=== PATIENT | male | born 1970 | race Caucasian/White ===

== ENCOUNTER 2020-08-21 16:23 | Emergency (ER) | payer MEDICAID, SELFPAY ==
[~2020-08-21] VITALS: Ht 195.6 cm; Wt 160.0 kg
--- NOTE | 2020-08-21 17:02 | NUR ---
PT STATES HE HAD SURGERY 10 WEEKS AGO TO REMOVE A LIGAMENT OFF OF AND ARTERY AND TENDONS. PT C/O SIMILAR ABDOMINAL PAIN FOR A FEW DAYS. PT AMBULATED TO RESTROOM WITH STEADY GAIT TO PROVIDE URINE SAMPLE. UA ORDERED PER PROTOCOL AND SENT TO LAB. PT CONNECTED TO MONITORING. CALL LIGHT IN REACH.
[2020-08-21 17:28] LABS: MICROSCOPIC AUTO
[2020-08-21] MEDS ORDERED: SODIUM CHLORIDE FLUSH 10ML SYR IVF ONE (17:30)
[2020-08-21] MEDS ORDERED: ONDANSETRON 2MG/ML, 2ML IVPush ONE (17:30)
[2020-08-21] MEDS ORDERED: ONDANSETRON 2MG/ML, 2ML ONE (17:48)
[2020-08-21] MEDS ORDERED: HYDROmorphone 1 MG/ML, 1ML INJ ONE ×2 (17:48→19:11)
[2020-08-21] MEDS: HYDROmorphone 2 MG/ML, 1ML IVPush PRN ×2 (17:57→19:13)
[2020-08-21 18:09] LABS: BASOPHILS % (AUTO) 1 % (0-1); EOSINOPHILS % (AUTO) 1 % (1-7); LYMPHOCYTES % (AUTO) 15 % (22-44); MEAN PLATELET VOLUME 8.1 fL (7.4-10.4); MONOCYTES % (AUTO) 10 % (2-9); NEUTROPHILS % (AUTO) 74 % (42-75); PLATELET COUNT 250 x10^3/uL (130-400); RED BLOOD COUNT 4.36 x10^6/uL (4.38-5.82); RED CELL DISTRIBUTION WIDTH 14.4 % (9.4-14.8)
[2020-08-21 18:11] LABS: MD NO
[2020-08-21 18:20] LABS: ALBUMIN 3.9 g/dL (3.4-5.0); ANION GAP 2 mmol/L (5-15); CHLORIDE 106 mmol/L (98-107)
[2020-08-21 18:27] LABS: ALANINE AMINOTRANSFERASE 52 U/L (12-78); ALKALINE PHOSPHATASE 99 U/L (45-117); BILIRUBIN,TOTAL 0.4 mg/dL (0.2-1.0); CREATININE 1.04 mg/dL (0.7-1.3); TROPONIN I < 0.015 ng/mL (0.000-0.045)
--- NOTE | 2020-08-21 18:39 | NUR ---
ALL RESULTS ARE BACK AT THIS TIME. CHART UP FOR RECHECK.
[2020-08-21] MEDS ORDERED: OMNIPAQUE 350 MG/ML, 100ML BOTTLE ONE (18:51)
--- NOTE | 2020-08-21 19:15 | NUR ---
PT C/O 05/10 PAIN. PAIN MEDS ADMIN PER NOV. PT GOING TO CT.
[2020-08-21 20:12] VITALS: BP 138/72
== END 2020-08-21 20:13 | disposition home or self-care (01) ==
LOC: ED 16:47
DX: R10.12 Left upper quadrant pain (principal); R07.89 Other chest pain; R94.31 Abnormal electrocardiogram [ECG] [EKG]; F17.200 Nicotine dependence, unspecified, uncomplicated
CPT/HCPCS: 36415; 74177; 80053; 81001; 83690; 84484; 85025; 93005; 96374; 96375; 96376; 99285; J1170; J2405; Q9967

== ENCOUNTER 2020-08-22 11:05 | Emergency (ER) | payer MEDICAID ==
[~2020-08-22] VITALS: Ht 193 cm; Wt 150.6 kg
--- NOTE | 2020-08-22 11:13 | NUR ---
PT AMBULATED TO ROOM WITH STEADY GAIT.
--- NOTE | 2020-08-22 11:15 | NUR ---
PT REFUSED TO GET INTO GOWN AND CONNECT TO MONITORING.
[2020-08-22] MEDS ORDERED: ONDANSETRON 2MG/ML, 2ML ONE (11:51)
[2020-08-22] MEDS ORDERED: HYDROmorphone 1 MG/ML, 1ML INJ ONE ×3 (11:51→14:27)
[2020-08-22] MEDS: HYDROmorphone 2 MG/ML, 1ML IVPush PRN ×2 (11:53→13:06)
[2020-08-22 11:55] LABS: BASOPHILS % (AUTO) 1 % (0-1); EOSINOPHILS % (AUTO) 2 % (1-7); LYMPHOCYTES % (AUTO) 20 % (22-44); MEAN CORPUSCULAR HEMOGLOBIN 32.4 pg (27.5-34.5); MEAN CORPUSCULAR HGB CONC 33.4 g/dL (33.2-36.2); MEAN PLATELET VOLUME 8.1 fL (7.4-10.4); MONOCYTES % (AUTO) 12 % (2-9); NEUTROPHILS % (AUTO) 66 % (42-75); PLATELET COUNT 251 x10^3/uL (130-400); RED BLOOD COUNT 4.14 x10^6/uL (4.38-5.82); RED CELL DISTRIBUTION WIDTH 14.3 % (9.4-14.8)
--- NOTE | 2020-08-22 11:56 | NUR ---
PT IN GOWN AND CONNECTED TO MONITORING. PIV PLACED, LABS DRAWN AND SENT TO LAB WITH STICKERS. MEDS ADMIN PER NOV.
[2020-08-22 11:59] LABS: MD NO
[2020-08-22] MEDS ORDERED: SODIUM CHLORIDE FLUSH 10ML SYR IVF ONE (12:00)
[2020-08-22] MEDS ORDERED: ONDANSETRON 2MG/ML, 2ML IVPush ONE (12:00)
[2020-08-22 12:07] LABS: ALBUMIN 3.7 g/dL (3.4-5.0); ANION GAP 6 mmol/L (5-15); CALCIUM 9.4 mg/dL (8.5-10.1); CHLORIDE 107 mmol/L (98-107)
[2020-08-22 12:13] LABS: ALANINE AMINOTRANSFERASE 47 U/L (12-78); ALKALINE PHOSPHATASE 96 U/L (45-117); BILIRUBIN,TOTAL 0.2 mg/dL (0.2-1.0); CREATININE 1.05 mg/dL (0.7-1.3); TOTAL PROTEIN 7.6 g/dL (6.4-8.2); TROPONIN I < 0.015 ng/mL (0.000-0.045)
--- NOTE | 2020-08-22 12:23 | NUR ---
PT STATES PAIN WENT FROM 8/10 TO 5/10 AFTER PAIN MEDS. N/O RECEIVED FOR LACTIC, BLOOD DRAWN FROM PIV, STORE SPECIALIST AT BEDSIDE.
--- NOTE | 2020-08-22 12:38 | NUR ---
PT GONE TO CT.
[2020-08-22] MEDS ORDERED: OMNIPAQUE 350 MG/ML, 150 ML BOTTLE ONE (13:01)
--- NOTE | 2020-08-22 13:08 | NUR ---
PT C/O 05/10 PAIN. MEDS ADMIN PER NOV.
[2020-08-22 13:09] VITALS: BP 155/80
--- NOTE | 2020-08-22 13:58 | NUR ---
ALL RESULTS ARE BACK AT THIS TIME. CHART UP FOR RECHECK.
[2020-08-22] MEDS ORDERED: MAALOX/HYOSCYAMINE/LIDOCAINE 45 ML BTL ONE (14:27)
[2020-08-22] MEDS ORDERED: MAALOX/HYOSCYAMINE/LIDOCAINE 45 ML BTL PO ONE (14:30)
[2020-08-22] MEDS ORDERED: HYDROmorphone 2 MG/ML, 1ML IVPush PRN (14:30)
== END 2020-08-22 15:07 | disposition home or self-care (01) ==
LOC: ED 13:02
DX: K90.0 Celiac disease (principal); R10.13 Epigastric pain; R42 Dizziness and giddiness; M79.89 Other specified soft tissue disorders; F17.200 Nicotine dependence, unspecified, uncomplicated
CPT/HCPCS: 36415; 71275; 74174; 80053; 83605; 83690; 84484; 85025; 93005; 96374; 96375; 96376; 99285; J1170; J2405; Q9967

== ENCOUNTER 2020-08-25 02:13 | Inpatient (IN) | payer MEDICAID ==
[~2020-08-25] VITALS: Ht 193 cm; Wt 154.8 kg
[2020-08-25] MEDS ORDERED: HYDROmorphone 2 MG/ML, 1ML ONE ×2 (02:57→04:04)
[2020-08-25] MEDS ORDERED: ONDANSETRON 2MG/ML, 2ML ONE (02:57)
[2020-08-25] MEDS ORDERED: ONDANSETRON 2MG/ML, 2ML IVPush ONE (03:00)
[2020-08-25] MEDS ORDERED: SODIUM CHLORIDE FLUSH 10ML SYR IVF ONE (03:00)
[2020-08-25] MEDS: HYDROmorphone 2 MG/ML, 1ML IVPush PRN ×2 (03:05→04:06)
[2020-08-25 03:39] LABS: BASOPHILS % (AUTO) 1 % (0-1); EOSINOPHILS % (AUTO) 2 % (1-7); LYMPHOCYTES % (AUTO) 24 % (22-44); MEAN CORPUSCULAR HEMOGLOBIN 31.9 pg (27.5-34.5); MEAN CORPUSCULAR HGB CONC 33.3 g/dL (33.2-36.2); MEAN PLATELET VOLUME 8.2 fL (7.4-10.4); MONOCYTES % (AUTO) 8 % (2-9); NEUTROPHILS % (AUTO) 66 % (42-75); PLATELET COUNT 235 x10^3/uL (130-400); RED BLOOD COUNT 4.18 x10^6/uL (4.38-5.82); RED CELL DISTRIBUTION WIDTH 14.5 % (9.4-14.8)
[2020-08-25 03:40] LABS: MD NO
[2020-08-25 03:44] LABS: ALANINE AMINOTRANSFERASE 48 U/L (12-78); ALBUMIN 3.5 g/dL (3.4-5.0); ANION GAP 7 mmol/L (5-15); CALCIUM 8.2 mg/dL (8.5-10.1); CHLORIDE 106 mmol/L (98-107); CREATININE 1.19 mg/dL (0.7-1.3)
[2020-08-25 03:49] LABS: ALKALINE PHOSPHATASE 96 U/L (45-117); BILIRUBIN,TOTAL 0.2 mg/dL (0.2-1.0); TOTAL PROTEIN 7.1 g/dL (6.4-8.2)
[2020-08-25] MEDS ORDERED: SODIUM CHLORIDE 0.9% 1,000ML IVBOLUS ONE (04:30)
[2020-08-25] MEDS ORDERED: DOCUSATE 100 MG CAPSULE PO PRN (05:30)
[2020-08-25] MEDS ORDERED: ONDANSETRON 2MG/ML, 2ML IVPush PRN (05:30)
[2020-08-25] MEDS ORDERED: LABETALOL 5MG/ML, 20ML IVPush PRN (05:30)
[2020-08-25] MEDS ORDERED: ACETAMINOPHEN 325 MG TABLET PO PRN (05:30)
[2020-08-25] MEDS ORDERED: morphine SULFATE 10 MG/ML, 1ML IVPush PRN (05:30)
[2020-08-25] MEDS ORDERED: GUAIFENESIN/COD200MG-20MG/10ML LIQUID PO PRN (05:30)
--- NOTE | 2020-08-25 05:37 | NUR ---
PT SITTING ON SIDE OF BED. STATING HE IS HAVING PAIN AGAIN. WILL CHECK [facility] FOR AVAILABLE MEDICATIONS. VSS. PT HAS BED PLACEMENT. RN WILL CALL REPORT.
--- NOTE | 2020-08-25 05:55 | NUR ---
REPORT GIVEN TO ROWENA LEUNG.
[2020-08-25 06:35] VITALS: BP 155/102
[2020-08-25 07:52] VITALS: BP 145/86
[2020-08-25] MEDS: HYDROmorphone 1 MG/ML, 1ML INJ IV PRN ×3 (10:14→22:53)
[2020-08-25] MEDS: FAMOTIDINE 20 MG/2 ML IVPush SCH ×2 (10:14→21:53)
[2020-08-25 13:09] VITALS: BP 145/81
[2020-08-25] MEDS ORDERED: HYDROmorphone 1 MG/ML, 1ML INJ IV PRN (18:00)
[2020-08-25] MEDS: SODIUM CHLORIDE 0.9% 1,000 ML IV SCH (18:27)
[2020-08-25 20:51] VITALS: BP 164/90
[2020-08-25] MEDS: OXYcodone IR 5MG TABLET PO PRN (21:53)
[2020-08-25] MEDS: ZOLPIDEM 5MG TABLET PO PRN (23:50)
[2020-08-26] MEDS: SODIUM CHLORIDE 0.9% 1,000 ML IV SCH ×3 (02:00→17:32)
[2020-08-26] MEDS: HYDROmorphone 1 MG/ML, 1ML INJ IV PRN ×5 (03:17→21:11)
[2020-08-26 03:24] VITALS: BP 173/95
[2020-08-26 03:29] VITALS: BP 152/93
[2020-08-26] MEDS: OXYcodone IR 5MG TABLET PO PRN ×2 (04:50→15:04)
[2020-08-26 06:12] LABS: BASOPHILS % (AUTO) 1 % (0-1); EOSINOPHILS % (AUTO) 3 % (1-7); LYMPHOCYTES % (AUTO) 22 % (22-44); MEAN CORPUSCULAR HEMOGLOBIN 32.2 pg (27.5-34.5); MEAN CORPUSCULAR HGB CONC 33.2 g/dL (33.2-36.2); MEAN PLATELET VOLUME 8.2 fL (7.4-10.4); MONOCYTES % (AUTO) 9 % (2-9); NEUTROPHILS % (AUTO) 66 % (42-75); PLATELET COUNT 216 x10^3/uL (130-400); RED BLOOD COUNT 3.91 x10^6/uL (4.38-5.82); RED CELL DISTRIBUTION WIDTH 14.5 % (9.4-14.8)
[2020-08-26 06:16] LABS: HCT (SEDRATE) 38.3 % (39.2-51.8)
[2020-08-26 06:17] LABS: MD NO
[2020-08-26 06:22] LABS: ALBUMIN 3.4 g/dL (3.4-5.0); ANION GAP 5 mmol/L (5-15); CALCIUM 8.3 mg/dL (8.5-10.1); CHLORIDE 106 mmol/L (98-107)
[2020-08-26 06:25] LABS: D-DIMER 0.34 ug/mlFEU (0.00-0.52)
[2020-08-26 06:33] LABS: ALANINE AMINOTRANSFERASE 40 U/L (12-78); ALKALINE PHOSPHATASE 92 U/L (45-117); BILIRUBIN,TOTAL 0.4 mg/dL (0.2-1.0); CREATININE 1.14 mg/dL (0.7-1.3); TOTAL PROTEIN 7.2 g/dL (6.4-8.2)
[2020-08-26 07:41] VITALS: BP 146/89
[2020-08-26] MEDS: FAMOTIDINE 20 MG/2 ML IVPush SCH ×2 (07:56→21:11)
[2020-08-26] MEDS: LORazepam 1MG TABLET PO PRN ×2 (10:07→17:54)
[2020-08-26 10:14] LABS: TROPONIN I < 0.015 ng/mL (0.000-0.045)
[2020-08-26 14:16] VITALS: BP 171/88
[2020-08-26] MEDS ORDERED: DIPHENHYDRAMINE 25 MG CAPSULE PO PRN (14:30)
[2020-08-26 16:56] LABS: TROPONIN I < 0.015 ng/mL (0.000-0.045)
[2020-08-26] MEDS: METHOCARBAMOL 500 MG TABLET PO PRN (17:54)
[2020-08-26 18:47] VITALS: BP 151/92
[2020-08-26] MEDS: ZOLPIDEM 5MG TABLET PO PRN (22:17)
[2020-08-27 01:26] VITALS: BP 146/88
[2020-08-27] MEDS: HYDROmorphone 1 MG/ML, 1ML INJ IV PRN ×4 (01:30→16:15)
[2020-08-27] MEDS: SODIUM CHLORIDE 0.9% 1,000 ML IV SCH ×2 (02:00→10:00)
[2020-08-27] MEDS: METHOCARBAMOL 500 MG TABLET PO PRN (03:08)
[2020-08-27 04:39] LABS: BASOPHILS % (AUTO) 1 % (0-1); EOSINOPHILS % (AUTO) 4 % (1-7); LYMPHOCYTES % (AUTO) 19 % (22-44); MEAN CORPUSCULAR HGB CONC 32.9 g/dL (33.2-36.2); MONOCYTES % (AUTO) 10 % (2-9); NEUTROPHILS % (AUTO) 66 % (42-75); PLATELET COUNT 217 x10^3/uL (130-400); RED BLOOD COUNT 3.93 x10^6/uL (4.38-5.82); RED CELL DISTRIBUTION WIDTH 14.3 % (9.4-14.8)
[2020-08-27 04:49] LABS: MD NO
[2020-08-27 04:53] LABS: ANION GAP 6 mmol/L (5-15); CALCIUM 8.8 mg/dL (8.5-10.1); CHLORIDE 106 mmol/L (98-107)
[2020-08-27 04:54] LABS: CREATININE 1.06 mg/dL (0.7-1.3)
[2020-08-27 07:46] VITALS: BP 130/100
[2020-08-27] MEDS: FAMOTIDINE 20 MG/2 ML IVPush SCH (09:00)
[2020-08-27] MEDS: LORazepam 1MG TABLET PO PRN (13:35)
[2020-08-27 15:09] VITALS: BP 159/97
[2020-08-27] MEDS ORDERED: HYDROmorphone 1 MG/ML, 1ML INJ IV PRN (22:00)
== END 2020-08-27 16:41 | disposition left against medical advice (07) | DRG 392 ==
LOC: ED 02:47 → EDIP 04:16 → 3N 06:04
PROVIDERS: ADMIT Internal Medicine; ATTEND Family Medicine
DX: I77.4 Celiac artery compression syndrome (principal); E87.2 Acidosis; Z68.41 Body mass index [BMI] 40.0-44.9, adult; D64.9 Anemia, unspecified; F41.9 Anxiety disorder, unspecified; F17.210 Nicotine dependence, cigarettes, uncomplicated; E83.51 Hypocalcemia; G47.00 Insomnia, unspecified; Z53.29 Procedure and treatment not carried out because of patient's decision for other reasons; R73.9 Hyperglycemia, unspecified; Z76.5 Malingerer [conscious simulation]; Z82.49 Family history of ischemic heart disease and other diseases of the circulatory system; Z83.3 Family history of diabetes mellitus; Z88.8 Allergy status to other drugs, medicaments and biological substances; Z87.19 Personal history of other diseases of the digestive system; E66.9 Obesity, unspecified
CPT/HCPCS: 36415; 71045; 76700; 78264; 80048; 80053; 82728; 83036; 83520; 83605; 83615; 83690; 83880; 84484; 85025; 85379; 85384; 85651; 86140; 86200; 86256; 86431; 93005; 93306; 96374; 96376; 99285; G0378; J1170; J2405; 86226; A9541; J2270; J7030; Q0163

== ENCOUNTER 2020-08-28 15:47 | Emergency (ER) | payer MEDICAID ==
[~2020-08-28] VITALS: Ht 162.6 cm; Wt 147.0 kg
[2020-08-28 16:42] LABS: BASOPHILS % (AUTO) 0 % (0-1); EOSINOPHILS % (AUTO) 2 % (1-7); LYMPHOCYTES % (AUTO) 9 % (22-44); MEAN CORPUSCULAR HEMOGLOBIN 32.4 pg (27.5-34.5); MEAN CORPUSCULAR HGB CONC 33.6 g/dL (33.2-36.2); MEAN PLATELET VOLUME 7.9 fL (7.4-10.4); MONOCYTES % (AUTO) 8 % (2-9); NEUTROPHILS % (AUTO) 81 % (42-75); PLATELET COUNT 268 x10^3/uL (130-400); RED BLOOD COUNT 4.65 x10^6/uL (4.38-5.82); RED CELL DISTRIBUTION WIDTH 14.5 % (9.4-14.8)
[2020-08-28 16:43] LABS: MD NO
[2020-08-28 16:53] LABS: ALANINE AMINOTRANSFERASE 60 U/L (12-78); ALBUMIN 3.8 g/dL (3.4-5.0); ANION GAP 4 mmol/L (5-15); CALCIUM 9.2 mg/dL (8.5-10.1); CHLORIDE 108 mmol/L (98-107); CREATININE 1.29 mg/dL (0.7-1.3)
[2020-08-28 16:58] LABS: ALKALINE PHOSPHATASE 106 U/L (45-117); BILIRUBIN,TOTAL 0.5 mg/dL (0.2-1.0); TOTAL PROTEIN 8.4 g/dL (6.4-8.2); TROPONIN I < 0.015 ng/mL (0.000-0.045)
--- NOTE | 2020-08-28 17:23 | NUR ---
RELATIONSHIP MANAGEMENT LEAD: PT AMBULATORY TO ROOM FROM LOBBY
[2020-08-28 18:26] VITALS: BP 178/87
--- NOTE | 2020-08-28 18:41 | NUR ---
PT UP TO COMMODE, NO ISSUES. BACK IN STRETCHER AND ON CR MONITOR. RECHECK BP at 169/93
== END 2020-08-28 19:10 | disposition home or self-care (01) ==
LOC: ED 19:07
DX: G89.29 Other chronic pain (principal); R10.84 Generalized abdominal pain; H10.023 Other mucopurulent conjunctivitis, bilateral; K64.8 Other hemorrhoids; F17.200 Nicotine dependence, unspecified, uncomplicated
CPT/HCPCS: 36415; 71045; 80053; 83690; 84484; 85025; 93005; 99285